=== PATIENT | female | born 1990 | race Caucasian/White ===

== ENCOUNTER 2021-05-29 11:15 | Emergency (ER) | payer OTHER ==
[~2021-05-29] VITALS: Ht 167 cm; Wt 95.0 kg
[~2021-05-29 11:15] MED LIST: TRAM-21 PO
[2021-05-29] MEDS ORDERED: NS IV 1000 ML 1,000 ML IV SCH (11:30)
[2021-05-29] MEDS ORDERED: ONDANSETRON 4 MG/2 ML (SDV) Z0FRAN IVP ONE (11:30)
--- NOTE | 2021-05-29 11:35 | ED GI ---
General Stated Complaint: N/V,DIARRHEA Source of Information: Patient (MARGARET ALMEIDA) History of Present Illness Date Seen by Provider: May 29, 2021 Time Seen by Provider: 11:32 Initial Comments Patient is a 30-year-old female who presents ED with nausea, vomiting, diarrhea. Symptoms started 7 days ago. She reports between 5-10 episodes of diarrhea daily over the past 7 days. Denies any odor, blood. Reports generalized abdominal cramping and discomfort. Patient also reports runny nose without cough, sore throat or chest pain. She has associated vomiting 1 or 2 episodes daily. Patient does have a history of acid reflux. No history of previous abdominal surgery. Denies any urinary symptoms, fever, headache, dizziness. Patient states she is having difficulty eating and keeping food down. She states she feels weak and fatigued. Denies of any Covid or influenza testing. No family history of inflammatory bowel disease. Patient last menstrual cycle was on the ninth (MARGARET ALMEIDA) Allergies and Home Medications Allergies Coded Allergies: No Known Drug Allergies (Unverified Allergy, Mild, 11/23/08) Patient Home Medication List Home Medication List Reviewed: Yes (MARGARET ALMEIDA) Ondansetron (Ondansetron Odt) 4 Mg Tab.rapdis, 4 MG PO Q6H PRN for NAUSEA/VOMITING-1ST LINE Prescribed by: BERONICA MISTRY on 05/29/21 1344 Tramadol Hcl (Ultram) 50 Mg Tablet, 50 MG PO Q4-6HRS PRN Prescribed by: ALETA OH on 11/23/08 1923 Discontinued Medications Ondansetron (Ondansetron Odt) 4 Mg Tab.rapdis, 4 MG PO Q6H PRN for NAUSEA/VO MITING-1ST LINE Prescribed by: BERONICA MISTRY on 05/29/21 1339 Review of Systems Review of Systems Constitutional: No chills; malaise, weakness EENTM: No Eye Pain, No Ear Pain, No Mouth Pain, No Mouth Swelling; Nose Congestion Respiratory: Denies Cough, Denies Shortness of Air Cardiovascular: Denies Chest Pain Gastrointestinal: Abdominal Pain, Diarrhea, Vomiting Genitourinary: Denies Burning, Denies Discharge, Denies Drainage, Denies Frequency Musculoskeletal: No back pain, No gout, No joint pain Skin: No change in color, No change in hair/nails (MARGARET ALMEIDA) Physical Exam Vital Signs Vital Signs - First Documented 05/29/21 11:20 Temp 36.2 Pulse 104 Resp 18 B/P (MAP) 122/78 (93) Pulse Ox 98 (ENA WAGNER MD) Vital Signs Capillary Refill : (MARGARET ALMEIDA) Height/Weight/BMI Height: '" Weight: lbs. oz. kg; BMI Method: General Appearance: WD/WN, no apparent distress HEENT: PERRL/EOMI, normal ENT inspection, TMs normal, pharynx normal Neck: non-tender, full range of motion, supple, normal inspection Respiratory: chest non-tender, lungs clear, normal breath sounds, no respiratory distress, no accessory muscle use Cardiovascular: regular rate, rhythm, no edema, no gallop, no JVD Gastrointestinal: normal bowel sounds, soft, no organomegaly, tenderness (Generalized tenderness) Extremities: normal range of motion, non-tender, normal inspection, no pedal edema Neurologic/Psychiatric: bellstaff II-XII nml as tested, no motor/sensory deficits, alert, normal mood/affect, oriented x 3 (MARGARET ALMEIDA) Progress/Results/Core Measures Results/Orders Lab Results Laboratory Tests Test 05/29/21 11:32 05/29/21 11:36 05/29/21 11:44 Range/Units Urine Color YELLOW Urine Clarity CLEAR Urine pH 6.0 5-9 Urine Specific [place] 1.025 H 1.016-1.022 Urine Protein NEGATIVE NEGATIVE Urine Glucose (UA) NEGATIVE NEGATIVE Urine Ketones NEGATIVE NEGATIVE Urine Nitrite NEGATIVE NEGATIVE Urine Bilirubin NEGATIVE NEGATIVE Urine Urobilinogen 0.2 < = 1.0 MG/DL Urine Leukocyte Esterase NEGATIVE NEGATIVE Urine RBC (Auto) NEGATIVE NEGATIVE Urine RBC RARE /HPF Urine WBC 0-2 /HPF Urine Squamous Epithelial Cells 5-10 /HPF Urine Crystals NONE /LPF Urine Bacteria TRACE /HPF Urine Casts NONE /LPF Urine Mucus NEGATIVE /LPF Urine Culture Indicated NO Urine Test NEGATIVE NEGATIVE Influenza Type A (RT-PCR) Not Detected Not Detecte Influenza Type B (RT-PCR) Not Detected Not Detecte SARS-CoV-2 RNA (RT-PCR) Not Detected Not Detecte White Blood Count 7.7 4.3-11.0 10^3/uL Red Blood Count 5.10 3.80-5.11 10^6/uL Hemoglobin 14.4 11.5-16.0 g/dL Hematocrit 44 35-52 % Mean Corpuscular Volume 87 80-99 fL Mean Corpuscular Hemoglobin 28 25-34 pg Mean Corpuscular Hemoglobin Concent 32 32-36 g/dL Red Cell Distribution Width 12.7 10.0-14.5 % Platelet Count 351 130-400 10^3/uL Mean Platelet Volume 9.3 9.0-12.2 fL Immature Granulocyte % (Auto) 0 % Neutrophils (%) (Auto) 54 42-75 % Lymphocytes (%) (Auto) 34 12-44 % Monocytes (%) (Auto) 9 0-12 % Eosinophils (%) (Auto) 2 0-10 % Basophils (%) (Auto) 1 0-10 % Neutrophils # (Auto) 4.2 1.8-7.8 10^3/uL Lymphocytes # (Auto) 2.6 1.0-4.0 10^3/uL Monocytes # (Auto) 0.7 0.0-1.0 10^3/uL Eosinophils # (Auto) 0.1 0.0-0.3 10^3/uL Basophils # (Auto) 0.1 0.0-0.1 10^3/uL Immature Granulocyte # (Auto) 0.0 0.0-0.1 10^3/uL Sodium Level 139 135-145 MMOL/L Potassium Level 3.7 3.6-5.0 MMOL/L Chloride Level 107 98-107 MMOL/L Carbon Dioxide Level 22 21-32 MMOL/L Anion Gap 10 5-14 MMOL/L Blood Urea Nitrogen 13 7-18 MG/DL Creatinine 0.79 0.60-1.30 MG/DL Estimat Glomerular Filtration Rate 87 BUN/Creatinine Ratio 16 Glucose Level 102 70-105 MG/DL Calcium Level 9.1 8.5-10.1 MG/DL Corrected Calcium 8.9 8.5-10.1 MG/DL Total Bilirubin 0.2 0.1-1.0 MG/DL Aspartate Amino Transf (AST/SGOT) 31 5-34 U/L Alanine Aminotransferase (ALT/SGPT) 70 H 0-55 U/L Alkaline Phosphatase 77 40-136 U/L Total Protein 8.0 6.4-8.2 GM/DL Albumin 4.2 3.2-4.5 GM/DL Lipase 56 8-78 U/L (ENA WAGNER MD) Medications Given in ED Current Medications Medications Dose Ordered Sig/James Route Start Time Stop Time Status Last Admin Dose Admin Ondansetron HCl 4 mg ONCE ONCE IVP 05/29/21 11:30 05/29/21 11:32 DC 05/29/21 11:38 4 MG (ENA WAGNER MD) Vital Signs/I&O 05/29/21 05/29/21 11:20 13:50 Temp 36.2 Pulse 104 88 Resp 18 18 B/P (MAP) 122/78 (93) 120/78 Pulse Ox 98 98 (ENA WAGNER MD) Departure Communication (PCP) Patient with vomiting over the past 7 days. Denies of any dark tarry stool, mucousy stool. No history of inflammatory bowel disease. Boyfriend with simila r symptoms. Covid and influenza negative. Normal white blood count, electrolytes. Patient was given a liter of fluid and Zofran here. Tolerating p.o. fluids. Very minimal abdominal tenderness. No peritoneal signs. Normal liver enzymes, pancreatic enzymes. She has no right upper quadrant or right lower quadrant tenderness. Discussed with patient this is likely more viral re lated. Due to the limited abdominal pain with negative abdominal exam we will continue with conservative treatment at this time. Discussed Zofran. May attempt few days worth Imodium for the diarrhea. If diarrhea continues may benefit with culture. No recent antibiotic use or travels. She does not appear toxic or septic. If worsening symptoms return back to ED for further morteza luation. [facility] (MARGARET ALMEIDA) Impression Primary Impression: Diarrhea Disposition: 01 HOME, SELF-CARE Condition: Stable Departure-Patient Inst. Decision time for Depature: 13:37 (MARGARET ALMEIDA) Referrals: NO,LOCAL PHYSICIAN (PCP/Family) Primary Care Physician Patient Instructions: Diarrhea in Adolescents and Adults Add. Discharge Instructions: Recommend taken Zofran for nausea. Recommend picking up Imodium for the diarrhea. Recommend staying hydrated with water and Gatorade. If worsening symptoms return back to ED for further evaluation. Scripts Ondansetron (Ondansetron Odt) 4 Mg Tab.rapdis 4 MG PO Q6H PRN for NAUSEA/VOMITING-1ST LINE for 7 Days, #10 TAB Prov: MARGARET ALMEIDA 05/29/21 ATTENDING PHYSICIAN NOTE: I was physically present as attending physician in the emergency department during the care of this patient, but I was not directly involved in the decision making or delivery of care for this patient. (ENA WAGNER MD) MARGARET ALMEIDA May 29, 2021 11:35 ENA WAGNER MD May 29, 2021 19:13
[2021-05-29 11:45] LABS: BILIRUBIN,URINE NEGATIVE (NEGATIVE); CLARITY,URINE CLEAR; COLOR,URINE YELLOW; GLUCOSE, URINE (UA) NEGATIVE (NEGATIVE); KETONES,URINE NEGATIVE (NEGATIVE); LEUKOCYTE ESTERASE ,URINE NEGATIVE (NEGATIVE); NITRITE,URINE NEGATIVE (NEGATIVE); PROTEIN,URINE NEGATIVE (NEGATIVE)
[2021-05-29 11:50] LABS: BASOPHILS # (AUTO) 0.1 10^3/uL (0.0-0.1); BASOPHILS % (AUTO) 1 % (0-10); EOSINOPHILS # (AUTO) 0.1 10^3/uL (0.0-0.3); EOSINOPHILS % (AUTO) 2 % (0-10); HEMATOCRIT 44 % (35-52); HEMOGLOBIN 14.4 g/dL (11.5-16.0); LYMPHOCYTES # (AUTO) 2.6 10^3/uL (1.0-4.0); LYMPHOCYTES % (AUTO) 34 % (12-44); MEAN CORPUSCULAR HEMOGLOBIN 28 pg (25-34); MEAN CORPUSCULAR HGB CONC 32 g/dL (32-36); MEAN CORPUSCULAR VOLUME 87 fL (80-99); MEAN PLATELET VOLUME 9.3 fL (9.0-12.2); MONOCYTES # (AUTO) 0.7 10^3/uL (0.0-1.0); MONOCYTES % (AUTO) 9 % (0-12); NEUTROPHILS # (AUTO) 4.2 10^3/uL (1.8-7.8); NEUTROPHILS % (AUTO) 54 % (42-75); PLATELET COUNT 351 10^3/uL (130-400); WHITE BLOOD COUNT 7.7 10^3/uL (4.3-11.0)
[2021-05-29 11:52] LABS: BACTERIA,URINE TRACE /HPF; RBC,URINE RARE /HPF; WBC,URINE 0-2 /HPF
[2021-05-29 12:01] LABS: ALBUMIN 4.2 GM/DL (3.2-4.5)
[2021-05-29 12:02] LABS: POTASSIUM 3.7 MMOL/L (3.6-5.0)
[2021-05-29 12:03] LABS: CALCIUM 9.1 MG/DL (8.5-10.1)
[2021-05-29 12:06] LABS: BILIRUBIN,TOTAL 0.2 MG/DL (0.1-1.0)
[2021-05-29 12:08] LABS: CREATININE SERUM 0.79 MG/DL (0.60-1.30)
[2021-05-29] MEDS ORDERED: ONDA4TAB11 PO ×3 (13:39→13:44)
[2021-05-29 13:50] VITALS: BP 120/78
== END 2021-05-29 13:50 | disposition home or self-care (01) ==
LOC: EDUNIT# 11:15 → ER 11:18
DX: R19.7 Diarrhea, unspecified (principal); Z20.822 Contact with and (suspected) exposure to COVID-19
CPT/HCPCS: 36415; 80053; 81000; 83690; 84703; 85025; 87636

== ENCOUNTER 2022-04-06 05:29 | Outpatient (CLI) | payer OTHER ==
[~2022-04-06] VITALS: Ht 167.7 cm; Wt 90.9 kg
[~2022-04-06 05:29] MED LIST changes: +ONDA4TAB11 PO
[2022-04-07] MEDS ORDERED: FLUO40CA12 PO (12:22)
[2022-04-07] MEDS ORDERED: CETI10TA49 PO (12:22)
[2022-04-07] MEDS ORDERED: BUSP30TA2 PO (12:22)
[2022-04-07] MEDS ORDERED: ALBU90AE2 IH (12:32)
== END 2022-04-07 12:44 | disposition home or self-care (01) ==
LOC: PREOP 05:29
PROVIDERS: ATTEND Podiatrist Foot & Ankle Surgery
DX: Z01.818 Encounter for other preprocedural examination (principal)

== ENCOUNTER 2022-05-20 05:31 | Outpatient (CLI) | payer OTHER ==
[~2022-05-20] VITALS: Ht 167.3 cm; Wt 90.9 kg
[~2022-05-20 05:31] MED LIST changes: +ALBU90AE2 IH; +BUSP30TA2 PO; +CETI10TA49 PO; +FLUO40CA12 PO
== END 2022-05-20 15:16 | disposition home or self-care (01) ==
LOC: PREOP 05:31
PROVIDERS: ATTEND Podiatrist Foot & Ankle Surgery
DX: Z01.818 Encounter for other preprocedural examination (principal)

== ENCOUNTER 2022-05-27 07:34 | Day surgery (SDC) | payer OTHER ==
[~2022-05-27] VITALS: Ht 167 cm; Wt 90.9 kg
[2022-05-27] VITALS (12 sets, daily range): BP systolic 102–124; BP diastolic 67–82
[2022-05-27] MEDS ORDERED: ceFAZolin INJECTION 1,000 MG in NS (IVPB) 50 ML IV ONE (07:45)
[2022-05-27] MEDS ORDERED: LACTATED RINGERS 1,000 ML IV PRN (07:45)
[2022-05-27] MEDS: LACTATED RINGERS 1,000 ML IV PRN ×2 (08:05→12:00)
[2022-05-27] MEDS ORDERED: fentaNYL INJ 100 MCG/2 ML AMP ONE ×2 (09:29→12:55)
[2022-05-27] MEDS ORDERED: SEVOFLURANE (ULTANE) 15 ML INHAL SOLN ONE ×3 (09:29→12:09)
[2022-05-27] MEDS ORDERED: ONDANSETRON 4 MG/2 ML (SDV) Z0FRAN ONE (09:29)
[2022-05-27] MEDS ORDERED: proPOfol 200 MG/20 ML (DIPRIVAN) VIAL IV ONE (09:29)
[2022-05-27] MEDS ORDERED: LIDOCAINE PF 2% 5 ML (XYLOCAINE) VIAL ONE (09:29)
[2022-05-27] MEDS ORDERED: MIDAZOLAM 2 MG/2 ML (VERSED) VIAL ONE (09:30)
[2022-05-27] MEDS ORDERED: LIDOCAINE 1% INJ 20 ML VIAL ONE (09:35)
[2022-05-27] MEDS ORDERED: BUPIVACAINE 0.5% 30 ML (SENSORCAINE) VIAL ONE (09:35)
[2022-05-27] MEDS ORDERED: BUPIVACAINE 0.5% 30 ML (SENSORCAINE) VIAL INJ ONE (09:45)
[2022-05-27] MEDS ORDERED: LIDOCAINE 1% INJ 20 ML VIAL INJ ONE (09:45)
--- NOTE | 2022-05-27 09:58 | Progress Note-Pre Operative ---
Pre-Operative Progress Note Date of Available H&P: May 27, 2022 Date H&P Reviewed: May 27, 2022 Time H&P Reviewed: 09:58 Pre-Operative Diagnosis: Hallux Varus right IRASEMA HAY DPLebron May 27, 2022 09:58
--- NOTE | 2022-05-27 12:39 | Anesthesia-General Post-Op ---
General Patient Condition Mental Status/LOC: Same as Preop Cardiovascular: Satisfactory Nausea/Vomiting: Absent Respiratory: Satisfactory Pain: Controlled Complications: Absent Post Op Complications Complications None Follow Up Care/Instructions Patient Instructions None needed. Anesthesia/Patient Condition Patient Condition Patient is doing well, no complaints, stable vital signs, no apparent adverse anesthesia problems. No complications reported per nursing. GAURI GALAVIZ CRNA May 27, 2022 12:39
--- NOTE | 2022-05-27 12:42 | Progress Note-Post Operative ---
Post-Operative Progess Note Surgeon (s)/Crime Lab Technician (s) Surgeon IRASEMA HAY DPM Crime Lab Technician: none Pre-Operative Diagnosis Hallux Varus right Post-Operative Diagnosis Same Procedure & Operative Findings Date of Procedure 05/27/22 Procedure Performed/Findings Lapidus-Vasyl bunionectomy, right foot Anesthesia Type General Estimated Blood Loss Estimated blood loss (mL): Minimal Specimens/Packing Specimens Removed none IRASEMA HYA DPM May 27, 2022 12:42
[2022-05-27] MEDS ORDERED: CEPH500C PO (12:44)
[2022-05-27] MEDS ORDERED: ACHD5005 PO (12:44)
[2022-05-27] MEDS ORDERED: HYDROcodone/APAP 5 MG/325 MG (LORTAB) TAB PO PRN (12:45)
[2022-05-27] MEDS ORDERED: fentaNYL INJ 100 MCG/2 ML AMP IVP ONE (12:45)
[2022-05-27] MEDS ORDERED: LACTATED RINGERS 1,000 ML IV SCH (12:45)
[2022-05-27] MEDS ORDERED: HYDROmorphone 2 MG/ML VIAL (DILAUDID) IV ONE (12:45)
[2022-05-27] MEDS: ONDANSETRON 4 MG/2 ML (SDV) Z0FRAN IVP PRN ×2 (13:17→13:39)
--- NOTE | 2022-05-27 13:38 | Diagnostic Imaging Report ---
EXAMINATION: Right foot radiographs, 2 views. COMPARISON: None. HISTORY: 31-year-old female, status post foot surgery. FINDINGS: There are osteotomy changes of the first metatarsal with metallic wire fixation at this location. There is sideplate and screw fixation hardware at the level of the proximal aspect of the first metatarsal and medial cuneiform. There is also an additional fixation screw traversing across the first tarsometatarsal articulation. There is dorsal soft tissue swelling, predominantly at the level of the metatarsals. The first metatarsal base appears to be abnormally laterally positioned relative to the medial cuneiform. Additional metatarsal base alignment relative to the cuneiforms and cuboid is limited given 2 view technique. There is no gross malalignment at the second tarsometatarsal articulation. 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 IMPRESSION: 1. Post operative changes of the first proximal phalanx and in the region of the first tarsometatarsal articulation with intact hardware. 2. The first metatarsal base does appear to be abnormally laterally subluxed relative to the medial cuneiform. Additional metatarsal base alignment is limited on 2 view exam. Recommend correlation with earlier imaging. Dictated by: Dictated on workstation # [id number]
[2022-05-27] MEDS ORDERED: HYDROcodone/APAP 5 MG/325 MG (LORTAB) TAB ONE (13:45)
--- NOTE | 2022-05-27 14:39 | Physical Therapy Ortho Eval ---
PT Orthopedic Evaluation Type of Surgery right halux valgus metatarsal elevatus Prior Level of Function Current Living Status: Alone Locomotion (Upon Admit): Independent Established Durable Medical Eq: None Subjective Subjective Patient in bed pre tx, agrees to PT, has 8/10 pain in right foot Entry Into Home: Stairs Without Railing Steps Into Home: 2 Motor Control Motor Control: Motor Control WNL Transfer SCALE: Activities may be completed with or without assistive devices. 6-Vqkflxhukl-zlomrkh completes the activity by him/herself with no assistance from a helper. 5-Set-up or Clean-up Assistance-helper sets up or cleans up; patient completes activity. [place] assists only prior to or following the activity. 4-Supervision or Touching Assistance-helper provides verbal cues and/or touching/steadying and/or contact guard assistance as patient completes activity. Assistance may be provided throughout the activity or intermittently. 3-Partial/Moderate Assistance-helper does LESS THAN HALF the effort. [place] lifts, holds or supports trunk or limbs, but provides less than half the effort. 2-Substantial/Maximal Assistance-helper does MORE THAN HALF the effort. [place] lifts or holds trunk or limbs and provides more than half the effort. 8-Rxazhqwbx-inakel does ALL the effort. Patient does none of the effort to complete the activity. Or, the assistance of 2 or more helpers is required for the patient to complete the activity. If activity was not attempted, code reason: 7-Patient Refused. 9-Not Applicable-not attempted and the patient did not perform the activity before the current illness, exacerbation or injury. 10-Not Attempted due to Environmental Limitations-(lack of equipment, weather restraints, etc.). 88-Not Attempted due to Medical Conditions or Safety Concerns. Transfers (B, C, W/C) (QC): 4 Gait Right Lower Extremity: Right Weight Bearing Status RLE: Non Weight Bearing Left Lower Extremity: Left Weight Bearing Status LLE: Full Weight Bearing Summary/Comments Patient ambulated 50' with a rolling walker with CGA, she was able to maintain NWB on the right LE effectively and hop on her left leg well, no LOB. Patient also went up and down 1 step using a rolling walker with CGA and cues for positioning. Patient wore a boot on the right side. Treatment Rendered Treatment: Therapeutic Exercises, Gait Train, Step Train Exercise Instruction: Quad Sets, Heel Slides, Ankle Pumps Assessment/Goals Goal Time Frame: 1 Visit Understands HEP: Yes Safe Ambulation: Yes Plan Treatment Plan: Discharge PT/Family Agrees to Plan: Yes Time Time In: 1411 Time Out: 1425 Total Billed Treatment Time: 14 Billed Treatment Time 1 visit EVL 14' DEION PUGH PT May 27, 2022 14:39
--- NOTE | 2022-05-27 19:20 | OPERATIVE REPORT ---
DATE OF SERVICE: 05/27/2022 SURGEON: Yael Hay DPM PREOPERATIVE DIAGNOSIS: Hallux abductovalgus metatarsal primus varus, right foot. POSTOPERATIVE DIAGNOSIS: Hallux abductovalgus metatarsal primus varus, right foot. PROCEDURE: Modified [place]idus -- Vasyl bunionectomy, right foot. WOUND CLASS: Clean. ANESTHESIA: General. HEMOSTASIS: Pneumatic thigh tourniquet at 250 mmHg. INDICATIONS: This 31-year-old female presents complaining of painful bunion to the right foot. Conservative therapy has met with unsatisfactory results and the patient is agreeable to surgical intervention after risks and complications were discussed at length. No guarantees were extended to the patient and she is willing to proceed. DESCRIPTION OF PROCEDURE: The patient was brought back to the operating table and placed in secured supine position. Appropriate time-out was performed. General anesthetic was then induced. Presurgical injection of local anesthetic was performed utilizing 10 mL of 1:1 mixture of 1% Xylocaine and 0.5% Marcaine, injected in a Mo block, right foot. The right foot was then prepped and draped in normal sterile manner. The right foot was then elevated and allowed to exsanguinate after which the tourniquet was inflated to 250 mmHg. Attention was then directed to the dorsal aspect of the first metatarsophalangeal joint where approximately 5 cm longitudinal linear incision was created. The incision was deepened as the dorsal medial aspect of the first metatarsal cuneiform joint. The incision was deepened in the same plane with great care to identify and retract all vital neurovascular structures. All the necessary blood vessels were cauterized as encountered. The incision was deepened down to the first metatarsal cuneiform joint where a capsulorrhaphy was performed. The capsular tissue was reflected and arthrodesis to the first metatarsal cuneiform joint was performed utilizing the Bradley 28 system. The base of the first metatarsal was resected with her cut guide as well as the distal portion of the first cuneiform utilizing a 10-degree cut guide system. Next, a 3-hole standard Lapidus plate was then applied to the medial aspect of the first metatarsal cuneiform joint area utilizing 3.5 locking screws. Prior to this, however, a compression screw in length headed screw was driven from dorsal distal to plantar proximal across the arthrodesis site, noting good compression. The wound was flushed with copious amounts of normal saline throughout the procedure. The two proximal screws were 16 and 14 mm of length. The distal was 20 mm of length as well as a nonlocking screw at the most distal portion of the hole, which was 18 mm. Excellent fixation and alignment was appreciated confirmed by intraoperative C-arm. The wound was flushed with copious amounts of normal saline. Closure was performed in layers. Deep closure was performed with 3-0 Vicryl, superficial with 4-0 Vicryl, skin closure was performed with 4-0 Prolene in a horizontal mattress type stitch. Attention was then directed to the distal aspect of the first metatarsal at the metatarsophalangeal joint where a 4 cm longitudinal linear incision was created and deepened in the same plane with great care to identify and retract all vital neurovascular structures. The incision was deepened down to the capsule where a longitudinal capsulotomy was performed. This revealed a hypertrophic medial eminence of the first metatarsal head, which was resected utilizing a power sagittal saw. This area was further contoured smooth. Attention was then directed into the first intermetatarsal space where a lateral release was performed. This included a release of the conjoined tendon of the adductor hallucis as well as a lateral capsulorrhaphy. Next, an Vasyl type osteotomy was performed where subperiosteal dissection was carried out to the proximal phalanx of the hallux, after which a wedge of bone was resected with the base, medial and lateral cortices held intact. Two boat pilot holes were created at the dorsal medial aspect of the osteotomy, allowing a 28-gauge monofilament wire to pass through and secured the osteotomy in a closed position. The wound was flushed with copious amounts of normal saline. Closure was then performed in layers. Deep closure was performed with 3-0 Vicryl, superficial with 4-0 Vicryl, skin closed with 4-0 Prolene in a horizontal mattress type stitch. Postoperative injection consisted of a 14 mL of 1:1 mixture of 1% Xylocaine and 0.5% Marcaine injected in a Om block as well as 10 mg of dexamethasone into the first intermetatarsal space lateral to the first metatarsal head. Postoperative dressing consisted of Betadine-soaked Adaptic, sterile 4 x 4's, sterile Kerlix, all secured with a Coban wrap. The patient tolerated the anesthesia and procedure well and was transported from the operating room to the recovery area with vital signs stable and vascular status intact to all digits of the right foot. She is to follow up in my office in 10 days period of time or sooner if necessary. She is to remain nonweightbearing on the right lower extremity with crutches. Prescription for Keflex and Vicodin were dispensed. She indicated that morphine makes her ill, but she was okay with hydrocodone. Job ID: [id number] DocumentID: [id number] Dictated Date: 05/27/2022 12:53:26 Freight Checker Date: 05/27/2022 19:18:00 Dictated By: YAEL HAY DPM
== END 2022-05-27 15:00 | disposition home or self-care (01) ==
LOC: SDC 07:34
PROVIDERS: ATTEND Podiatrist Foot & Ankle Surgery
DX: Q66.211 Congenital metatarsus primus varus, right foot (principal); E66.9 Obesity, unspecified; Z68.32 Body mass index [BMI] 32.0-32.9, adult
CPT/HCPCS: 73620; 84703; 87081

== ENCOUNTER → 2022-10-22 | Outpatient (CLI) | payer OTHER ==
[~2022-10-22] MED LIST changes: +ACHD5005 PO; +CEPH500C PO
--- NOTE | 2022-10-22 15:15 | Diagnostic Imaging Report ---
EXAMINATION: Magnetic resonance imaging of the right shoulder without contrast. D ATE: October 22, 2022. COMPARISON: None. HISTORY: 31-year-old female, right shoulder pain. TECHNIQUE: Magnetic resonance imaging sequences were performed of the shoulder without contrast. FINDINGS: ROTATOR CUFF, LIGAMENTS, TENDONS, AND MUSCLES: There is susceptibility artifact near the teres minor humeral insertion. The teres minor tendon is intact. The supraspinatus, infraspinatus and subscapularis tendons are intact. There is normal rotator cuff muscle bulk and signal. LONG HEAD OF BICEPS: The biceps labral attachment and long head of the biceps tendon is intact. The long head of the biceps tendon is normally positioned within the bicipital groove. GLENOHUMERAL JOINT: The humeral head is well positioned relative to the glenoid. There are linear signal tracks in the glenoid compatible with prior labral repair. These are spanning from the inferior labrum to the mid anterior labrum. There is no discretely identified labral tear. There is no identified paralabral cyst. The articular cartilage is grossly intact. There is no joint effusion. ACROMIOCLAVICULAR JOINT: The acromioclavicular joint is normally aligned. The coracoclavicular and coracoacromial ligaments are intact. There is no degenerative change of the acromioclavicular joint. BONE: There is no Hill-Sachs deformity. There is no os acromiale. There is no acute fracture, bone contusion or evidence of osteonecrosis. BURSAE AND SOFT TISSUES: The bursae and soft tissue surrounding the shoulder are unremarkable. IMPRESSION: 1. Evidence of prior labral repair without recurrent labral tear or paralabral cyst. Additional glenohumeral joint assessment is unremarkable. 2. Intact rotator cuff and proximal long head of biceps tendon. 3. Intact acromioclavicular joint. 4. Normal osseous morphology. No acute fracture, bone contusion or evidence of osteonecrosis. Dictated by: Dictated on workstation # [id number]
== END ==
LOC: RAD 14:12
PROVIDERS: ATTEND Emergency Medicine
DX: M25.511 Pain in right shoulder (principal); Z98.890 Other specified postprocedural states
CPT/HCPCS: 73221

== ENCOUNTER 2022-11-17 14:43 | Emergency (ER) | payer OTHER ==
[~2022-11-17] VITALS: Ht 167 cm; Wt 210.0 kg
[2022-11-17] MEDS ORDERED: NS IV 1000 ML 1,000 ML IV STA (15:11)
[2022-11-17] MEDS ORDERED: diphenhydrAMINE 50 MG/ML INJ (BENADRYL) IVP ONE (15:15)
[2022-11-17] MEDS ORDERED: KETOROLAC 30 MG/ML VIAL IVP ONE (15:15)
[2022-11-17] MEDS ORDERED: PROCHLORPERAZINE 10 MG/2ML INJ (COMPAZINE) IV ONE (15:15)
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
[2022-11-17 16:10] VITALS: BP 138/79
== END 2022-11-17 16:11 | disposition home or self-care (01) ==
LOC: EDUNIT# 14:43 → ER 14:47
DX: S06.0X0A Concussion without loss of consciousness, initial encounter (principal); G43.909 Migraine, unspecified, not intractable, without status migrainosus; M54.10 Radiculopathy, site unspecified; V89.2XXA Person injured in unspecified motor-vehicle accident, traffic, initial encounter; Y92.410 Unspecified street and highway as the place of occurrence of the external cause
CPT/HCPCS: 70450; 72125

== ENCOUNTER 2022-12-12 12:31 | Emergency (ER) | payer OTHER ==
[~2022-12-12] VITALS: Ht 167 cm; Wt 90.0 kg
--- NOTE | 2022-12-12 12:58 | ED General ---
General Chief Complaint: Fever-Adult/Adol Stated Complaint: FEVER AFTER SURGERY Nursing Triage Note: PT AMB TO RM 9 PT STATES HAS HAD LEEP PROCEDURE YESTERDAY @[place]. PT HAS FEVER UP TO 101, AND NAUSEA. PT DENIES PAIN, URINARY PROBLEMS, VAGINAL DRAINAGE, COUGH. Source of Information: Patient Exam Limitations: No Limitations History of Present Illness Date Seen by Provider: Dec 12, 2022 Time Seen by Provider: 12:44 Initial Comments 32-year-old female presents the emergency department today for fever. She had a LEEP procedure yesterday at the [facility]. She started to feel chills on her way home from the procedure. She also has a mild headache. She is otherwise asymptomatic. She had a temperature to 101 when taken orally. She is been using ibuprofen and Tylenol with intermittent relief. She denies any cough, chest pain, unilateral lower extremity pain, swelling, urinary symptoms. She has no vaginal discharge or bleeding. No pain. All other systems reviewed and negative except documented per HPI. Voice recognition software was used to help create this chart Allergies and Home Medications Allergies Coded Allergies: morphine (Unverified Allergy, Severe, Itching, 05/20/22) Patient Home Medication List Home Medication List Reviewed: Yes Albuterol Sulfate (Proair Digihaler) 90 Mcg Aer.pw.bas, 90 MCG IH UD, (Reported) Entered as Reported by: ROMEO MONZON on 04/07/22 1232 Buspirone HCl (Buspirone HCl) 30 Mg Tablet, 60 MG PO DAILY, (Reported) Entered as Reported by: ROMEO MONZON on 04/07/22 1222 Cephalexin (Cephalexin) 500 Mg Capsule, 1 CAP PO TID Prescribed by: IRASEMA HAY on 05/27/22 1244 Cetirizine HCl (Zyrtec) Unknown Strength Tablet, Unknown Dose PO DAILY, (Reported) Entered as Reported by: ROMEO MONZON on 04/07/22 1222 Fluoxetine HCl (Prozac) 40 Mg Capsule, 40 MG PO DAILY, (Reported) Entered as Reported by: ROMEO MONZON on 04/07/22 1222 Hydrocodone/Acetaminophen (Hydrocodone-Acetamin 5-325 mg) 5 Mg-325 Mg Tablet, 1 TAB PO Q4H PRN for PAIN-MODERATE (5-7) Prescribed by: IRASEMA HAY on 05/27/22 1245 Review of Systems Review of Systems Constitutional: see HPI Past Zdxwiwe-Yifcki-Uuxzso Hx Patient Social History Tobacco Use?: No Substance use?: No Alcohol Use?: Yes Alcohol type: Hard Liquor Alcohol Frequency: Once in a while Pt feels they are or have been: No Seasonal Allergies Seasonal Allergies: Yes Past Medical History Surgery/Hospitalization HX: DEPRESSION, LEEP PROCEDURE YESTERDAY, R SHOULDER , R WRIST, R FOOT SURG, T AND A Surgeries: Yes (R WRIST SX W/SCREW, LABIAL R SHOULDER SX) Adenoidectomy, Section, Tonsillectomy Respiratory: Yes Asthma Currently Using CPAP: No Currently Using BIPAP: No Cardiac: No Neurological: Yes (2011) Concussion Genitourinary: No Gastrointestinal: Yes Gastroesophageal Reflux Musculoskeletal: Yes (RIGHT WRIST ) Fractures Endocrine: No HEENT: No Cancer: No Psychosocial: Yes Anxiety, PTSD, Depression Integumentary: Yes Eczema Blood Disorders: No Physical Exam Vital Signs Vital Signs - First Documented 12/12/22 12:45 Temp 38.7 Pulse 112 Resp 16 B/P (MAP) 131/78 (95) Pulse Ox 97 Capillary Refill : Less Than 3 Seconds Height, Weight, BMI Height: '" Weight: lbs. oz. kg; 32.00 BMI Method: General Appearance: No Apparent Distress, WD/WN Eyes: Bilateral Eye Normal Inspection, Bilateral Eye PERRL, Bilateral Eye EOMI HEENT: Normal ENT Inspection, Pharynx Normal Neck: Normal Inspection, Non Tender, Supple Respiratory: Chest Non Tender, Lungs Clear, Normal Breath Sounds, No Accessory Muscle Use, No Respiratory Distress Cardiovascular: No Murmur, Normal Peripheral Pulses, Tachycardia Gastrointestinal: Normal Bowel Sounds, No Organomegaly, Non Tender, Soft Extremity: Normal Capillary Refill, Normal Inspection, Non Tender, No Calf Tend erness Neurologic/Psychiatric: Alert, Oriented x3, No Motor/Sensory Deficits Skin: Normal Color, Warm/Dry Progress/Results/Core Measures Suspected Sepsis SIRS Temperature: Pulse: 112 Respiratory Rate: 16 Blood Pressure 131 /78 Mean: 95 Results/Orders Vital Signs/I&O 12/12/22 12:45 Temp 38.7 Pulse 112 Resp 16 B/P (MAP) 131/78 (95) Pulse Ox 97 Capillary Refill : Less Than 3 Seconds Blood Pressure Mean: 95 Departure Communication (Admissions) I think it is likely that the patient had some sort of viral illness pending prior to her procedure given the close proximity, within 20 minutes after the procedure of her fever. There does not appear to be any complications for the fever. She was not put under general anesthesia, was not even sedated. She did not have a catheter. She does not have any risk factors for DVT, PE. There is no evidence for operative site infection. No indication for any further testing at this time. Impression Primary Impression: Fever Qualified Codes: R50.9 - Fever, unspecified Disposition: HOME, SELF-CARE Condition: Stable Departure-Patient Inst. Referrals: ROBINA CHACON DO (PCP/Family) Primary Care Physician Patient Instructions: Fever, Adult (DC) Add. Discharge Instructions: I do not believe this is likely a complication from your procedure but rather a viral type illness that you may have been incubating prior to the procedure. Alternate Tylenol and Motrin as needed. Increase your fluids at home and rest. Return to the emergency department for any severe concerns All discharge instructions reviewed with patient and/or family. Voiced understanding. SEAN PARRA DO Dec 12, 2022 12:58
[2022-12-12 13:03] VITALS: BP 120/76
== END 2022-12-12 13:04 | disposition home or self-care (01) ==
LOC: EDUNIT# 12:31 → ER 12:33
DX: R50.82 Postprocedural fever (principal)
CPT/HCPCS: 99281